=== PATIENT | male | born 1990 | race Native Hawaiian/Other Pacific Islander ===

== ENCOUNTER 2023-10-06 19:20 | Emergency (ER) | payer OTHER, SELFPAY ==
--- NOTE | ~2023-10-06 | XR_ITS ---
EXAMINATION: XR HAND, RIGHT CLINICAL INFORMATION: Injury fall COMPARISON: None available. TECHNIQUE: PA, lateral, and oblique views of the right hand. FINDINGS: Mildly angulated boxer fracture of the neck of the fourth and fifth metacarpals . No other fractures. There is adjacent soft tissue swelling. XR/XR hand RT min 3V IMPRESSION: Mildly angulated Boxer fractures of the neck of the fourth and fifth metacarpals.
[2023-10-06 19:22] VITALS: BP 115/60; PULSE 92; RESP 18; TEMP 37.3; O2SAT 92; BMI 23.6
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
[2023-10-06 22:01] VITALS: BP 120/72; PULSE 66; RESP 18; TEMP 36.8; TEMP 36.9; O2SAT 97
[2023-10-06] MEDS: Acetaminophen 325 MG TABLET 975 MG PO (22:06)
[2023-10-07 00:39] VITALS: BP 117/54; PULSE 63; RESP 16; TEMP 36.7; O2SAT 95
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
[2023-10-07 01:47] VITALS: BP 118/60; PULSE 63; RESP 16; TEMP 36.7; O2SAT 95
== END 2023-10-07 01:52 | disposition home or self-care (01) ==
PROVIDERS: Emergency Provider Emergency Medicine; PCP Physician Assistant Medical
DX: S62.339A Displaced fracture of neck of unspecified metacarpal bone, initial encounter for closed fracture (principal); W22.8XXA Striking against or struck by other objects, initial encounter; Y93.89 Activity, other specified; Y92.9 Unspecified place or not applicable; Y99.9 Unspecified external cause status; M79.641 Pain in right hand
CPT/HCPCS: 73130; 99283; 99284

== ENCOUNTER 2023-10-13 12:03 | Outpatient (AMB) | payer OTHER, SELFPAY ==
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
[2023-10-13 12:40] VITALS: BMI 23.5
== END 2023-10-13 13:07 | disposition home or self-care (01) ==
PROVIDERS: PCP Physician Assistant Medical; Visit Provider Orthopaedic Surgery
DX: S62.334A Displaced fracture of neck of fourth metacarpal bone, right hand, initial encounter for closed fracture (principal); S62.336A Displaced fracture of neck of fifth metacarpal bone, right hand, initial encounter for closed fracture; D57.1 Sickle-cell disease without crisis
CPT/HCPCS: 99203

== ENCOUNTER 2023-10-13 15:39 | Outpatient (REF) | payer OTHER, SELFPAY ==
--- NOTE | ~2023-10-13 | XR_ITS ---
EXAMINATION: XR HAND, RIGHT CLINICAL INFORMATION: Pain in right hand. COMPARISON: October 06, 2023 TECHNIQUE: PA, lateral, and oblique views of the right hand. FINDINGS: Redemonstration of mildly angulated impacted fractures of the necks of the fourth and fifth metacarpals, characteristic of Boxer's fractures. Adjacent soft tissue swelling. Fracture lines are less distinct, suggesting some mild interval bridging callus formation. Redemonstration of an ossicle distal to the ulnar styloid, possibly related to trauma of indeterminate age versus chronic/degenerative process. Ulnar-minus variance. Narrowing of the radiocarpal space. Slight buckling redemonstrated at the distal radius with transverse lucency, possibly developmental/normal variant versus related to prior trauma, and correlation with clinical exam recommended to determine further management. XR/XR hand RT min 3V IMPRESSION: Redemonstration of mildly angulated impacted fractures of the necks of the fourth and fifth metacarpals, characteristic of Boxer's fractures. Some interval bridging callus formation.
== END 2023-10-13 15:40 | disposition home or self-care (01) ==
LOC: HO.HOSX 15:39
PROVIDERS: Visit Provider Orthopaedic Surgery
DX: S62.334A Displaced fracture of neck of fourth metacarpal bone, right hand, initial encounter for closed fracture (principal); S62.336A Displaced fracture of neck of fifth metacarpal bone, right hand, initial encounter for closed fracture; D57.1 Sickle-cell disease without crisis; W22.09XA Striking against other stationary object, initial encounter; Y93.9 Activity, unspecified; Y92.9 Unspecified place or not applicable; Y99.9 Unspecified external cause status
CPT/HCPCS: 73130; 99202

== ENCOUNTER 2023-10-20 09:03 | Outpatient (REF) | payer OTHER, SELFPAY ==
--- NOTE | ~2023-10-20 | XR_ITS ---
EXAMINATION: XR HAND, RIGHT CLINICAL INFORMATION: Pain in right hand. COMPARISON: 10/13/2023, 10/06/2023 TECHNIQUE: PA, lateral, and oblique views of the right hand. FINDINGS: Redemonstration of mildly angulated, impacted fractures of the neck of the fourth and fifth metacarpals, boxer's fractures. Adjacent soft tissue swelling. There is evidence of some interval bridging callus formation. Redemonstration of an ossicle distal to the ulnar styloid, possibly related to trauma of indeterminate age versus chronic/degenerative process. Ulnar-minus variance. Narrowing of the radiocarpal space. Slight focal cortical buckling redemonstrated at the distal radius with transverse lucency, possibly developmental/normal variant versus related to prior trauma, and correlation with clinical exam recommended to determine further management. XR/XR hand RT min 3V IMPRESSION: 1. Redemonstration of mildly angulated impacted fractures of the necks of the fourth and fifth metacarpals, characteristic of boxer's fractures. Some interval bridging callus formation. 2. Redemonstration of an ossicle distal to the ulnar styloid, possibly related to trauma of indeterminate age versus chronic/degenerative process. 3. Slight buckling redemonstrated at the distal radius with transverse lucency, possibly developmental/normal variant versus related to prior trauma, and correlation with clinical exam recommended to determine further management.
== END 2023-10-20 09:04 | disposition home or self-care (01) ==
LOC: HO.HOSX 09:03
PROVIDERS: Visit Provider Orthopaedic Surgery
DX: S62.334D Displaced fracture of neck of fourth metacarpal bone, right hand, subsequent encounter for fracture with routine healing (principal); S62.336D Displaced fracture of neck of fifth metacarpal bone, right hand, subsequent encounter for fracture with routine healing; D57.1 Sickle-cell disease without crisis
CPT/HCPCS: 73130; 99212

== ENCOUNTER 2023-10-20 10:38 | Outpatient (AMB) | payer OTHER, SELFPAY ==
[2023-10-20 10:54] VITALS: BMI 23.5
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
== END 2023-10-20 11:23 | disposition home or self-care (01) ==
PROVIDERS: PCP Physician Assistant Medical; Visit Provider Orthopaedic Surgery
DX: S62.334A Displaced fracture of neck of fourth metacarpal bone, right hand, initial encounter for closed fracture (principal); S62.336A Displaced fracture of neck of fifth metacarpal bone, right hand, initial encounter for closed fracture; D57.1 Sickle-cell disease without crisis
CPT/HCPCS: 99213

== ENCOUNTER 2023-11-10 10:49 | Outpatient (REF) | payer OTHER, SELFPAY | END 2023-11-10 10:50 | disposition home or self-care (01) | LOC: HO.HOSX 10:49 | PROVIDERS: Visit Provider Orthopaedic Surgery | DX: Z13.89 Encounter for screening for other disorder (principal) ==

== ENCOUNTER 2024-02-29 17:54 | Outpatient (REF) | payer OTHER, SELFPAY | END 2024-02-29 17:55 | disposition home or self-care (01) | LOC: HO.HOSX 17:54 | PROVIDERS: Visit Provider Orthopaedic Surgery | DX: Z13.89 Encounter for screening for other disorder (principal) ==

== ENCOUNTER 2024-03-02 17:54 | Outpatient (REF) | payer OTHER, SELFPAY | END 2024-03-02 17:55 | disposition home or self-care (01) | LOC: HO.HOSX 17:54 | PROVIDERS: Visit Provider Orthopaedic Surgery | DX: Z13.89 Encounter for screening for other disorder (principal) ==